=== PATIENT | male | born 1950 | race Caucasian/White ===

== ENCOUNTER 2019-03-03 05:51 | Inpatient (IN) | payer MEDICARE ==
[2019-03-03] MEDS ORDERED: FAMOTIDINE 20MG TABLET PO ONE (06:00)
[2019-03-03] MEDS ORDERED: ACETAMINOPHEN 500 MG TABLET PO ONE (06:00)
[2019-03-03] MEDS ORDERED: SCOPOLAMINE 1 PATCH TDSY TD ONE (06:00)
[2019-03-03] MEDS ORDERED: CELECOXIB 100 MG CAPSULE PO ONE (06:00)
[2019-03-03] MEDS ORDERED: CLINDAMYCIN PHOS/D5W 900MG 900 MG/50 ML BAG IVPB ONE (06:00)
[2019-03-03] MEDS ORDERED: VANCOMYCIN 1GM/200ML PREMIX 1 GM/200 ML PIGGYBACK IVPB ONE (06:00)
[2019-03-03] MEDS ORDERED: METOCLOPRAMIDE 10 MG TABLET PO ONE (06:00)
[2019-03-03] MEDS ORDERED: RINGERS SOLUTION,LACTATED 1,000 ML IV ONE ×4 (06:35→10:26)
[2019-03-03 06:49] LABS: ABO GROUP O; RH TYPE POSITIVE
[2019-03-03 06:57] LABS: ANTIBODY SCREEN NEGATIVE (NEGATIVE)
[2019-03-03] MEDS ORDERED: ZOLPIDEM TARTRATE 5 MG TABLET PO PRN (08:11)
[2019-03-03] MEDS ORDERED: AL HYDROX/MAG HYDROX 30ML UD PO PRN (08:11)
[2019-03-03] MEDS ORDERED: MAGNESIUM HYDROXIDE 30 ML UDC PO PRN (08:11)
[2019-03-03] MEDS ORDERED: BISACODYL 10 MG SUPP RC PRN (08:11)
[2019-03-03] MEDS ORDERED: ONDANSETRON HCL IV 4 MG/2 ML VIAL IVP PRN (08:11)
[2019-03-03] MEDS ORDERED: KETOROLAC 30 MG/ML VIAL IVP PRN ×2 (08:11)
[2019-03-03] MEDS ORDERED: ACETAMINOPHEN W/ CODEINE 300MG/30MG TABLET PO PRN ×2 (08:11)
[2019-03-03] MEDS ORDERED: ACETAMINOPHEN 325 MG TAB PO PRN (08:11)
[2019-03-03] MEDS ORDERED: ACETAMINOPHEN W/ CODEINE 300MG/60MG TABLET PO PRN ×2 (08:11)
[2019-03-03] MEDS ORDERED: NALOXONE 0.4 MG/1 ML VIAL IVP PRN (08:11)
[2019-03-03] MEDS ORDERED: DEXTROSE 5 % AND 0.9 % NACL 1,000 ML IV PRN (08:11)
[2019-03-03] MEDS ORDERED: HYDROMORPHONE HCL 2 MG/ML VIAL IM PRN ×2 (08:11)
[2019-03-03] MEDS ORDERED: METOCLOPRAMIDE HCL 10 MG/2 ML VIAL IVP PRN (08:11)
[2019-03-03] MEDS ORDERED: TRAMADOL HCL 50 MG TABLET PO PRN ×2 (08:11)
[2019-03-03] MEDS ORDERED: DIPHENHYDRAMINE HCL 25 MG CAPSULE PO PRN (08:11)
[2019-03-03] MEDS ORDERED: PROMETHAZINE HCL 12.5 MG in 0.9 % SODIUM CHLORIDE 100ML 50 ML IVPB PRN (08:11)
[2019-03-03] MEDS ORDERED: HYDROCODONE/APAP 5/325MG TABLET PO PRN ×2 (08:11)
[2019-03-03] MEDS ORDERED: BUPIVACAINE LIPOSOME 266MG/20ML VIAL SQ ONE (08:37)
[2019-03-03] MEDS ORDERED: BUPIVACAINE 0.5% W/EPI MPF 30 ML VIAL SQ ONE (08:37)
[2019-03-03] MEDS ORDERED: KETOROLAC 30 MG/ML VIAL IVP ONE (11:34)
[2019-03-03] MEDS: HYDROCODONE/APAP 7.5/325MG TABLET PO PRN ×4 (12:29→21:49)
[2019-03-03] MEDS: FERROUS SULFATE 325 MG TAB PO SCH ×2 (13:31→21:48)
[2019-03-03] MEDS: DOCUSATE SODIUM 100 MG CAPSULE PO SCH ×2 (13:31→21:48)
[2019-03-03] MEDS ORDERED: DEXAMETHASONE 4 MG/ML 1ML VIAL IVP ONE (14:00)
[2019-03-03] MEDS ORDERED: ROPIVACAINE HCL (NAROPIN) /PF 5MG/ML 20ML VIAL IV ONE (14:00)
[2019-03-03] MEDS ORDERED: TRANEXAMIC ACID 1,000 MG/10 ML ML IV ONE (14:00)
[2019-03-03] MEDS ORDERED: VANCOMYCIN HCL 1 GM VIAL IVPB ONE (14:00)
--- NOTE | 2019-03-03 16:05 | Rehab Evaluation ---
Patient Information - Patient Information Diagnosis: L knee OA Ordered Treatment: PT Evaluate and Treat Status: Initial Evaluation Surgery: Yes (L TKA) Date of Surgery: 03/03/19 Past Medical/Surgical Hx: PAST MEDICAL/SURGICAL HISTORY Past Surgical History bilat toe sx; open cholecystectomy; left knee semi partial replacement 8-10 yrs ago; colonoscopy; sinus sx; vasectomy; left dupytrens contracture sx. PMH - Respiratory Hx Respiratory Disorders Yes Hx Bronchitis Yes: awhile ago Hx Sleep Apnea Yes Hx of CPAP No PMH - Cardiovascular Hx Cardiovascular Disorders Yes Hx Edema Yes: left ankle slightly Hx Hypotension Yes Exercise Tolerance Poor Comment: due to knee injury PMH - Neuro Hx Neurological Disorders Yes Hx Weakness Yes: left knee PMH - GI Hx Gastroesophageal Reflux Yes: sometimes Hx Weight Loss/Weight Gain Yes: loss of 45 lbs since PMH - Hx Genitourinary Disorders No PMH - Endocrine Hx Endocrine Disorders No PMH - Musculoskeletal Hx Musculoskeletal Disorders Yes Hx Arthritis Yes: left kneeinjury 09/2018/ also in back Hx Back Injury Yes Hx Gout Yes: last time awhile ago PMH - Psych Hx Psychiatric Problems Yes Hx Anxiety Yes Hx Depression Yes PMH - Hematology/Oncology Hx Hematology/Oncology Yes Disorders Hx Blood Transfusion Reaction No Premorbid Status: Detail (The patient was independent with all mobility prior to surgery.) Social History: Detail (The patient lives alone in an apartment with 4 stairs at one enterance with 2 railings( too wide to reach both) and a ramp at the other enterance. The bathroom is equipped with : a tub/shower combination, shower seat and standard toilet. Grab bars were present in the shower but not near the toilet. The patient has a front wheeled walker and standard cane.) Precautions: [place], Fall, Other (WBAT on the L LE) - Time With Patient Total Time Spent With Patient (Min): 30 Treatment Procedures: Detail (Initial Evaluation low complexity, gait training) Subjective Information - Subjective Information Per Patient (The patient had complaints of medial calf pain. No tenderness to touch was noted.) Objective Data - Mental Status Patient Orientation: Oriented x3 - ROM Not within normal limits (The patient's L knee AROM is limited s/p surgery. All other AROM is WFL.) - Strength/Tone Not within normal limits (The patient's L LE strength was not tested s/p surgery however is functional ie: patient is able to lift L LE in and out of bed. The patient's R LE strength is WNL.) - Bed Mobility Independent (The patient was independent with supine to and from sit transfer.) - Transfers Independent (The patient was independent with sit to and from stand transfer.) - Balance Balance Sitting: Good Balance Standing: Good - Sensation Intact - Gait Detail (The patient ambulated with front wheeled walker a distance of 100 feet x 1 with supervision for safety WBAT on the L LE.) Therapy Assessment - Therapy Assessment Detail (The patient was independent with bed mobility and transfers and required supervision for safety only with ambulation. Feel the patient will progress well with mobility.) Problem List - Problem List Physical Therapy Problem List: Detail (1) Decreased L knee pain as to be expected s/p surgery. 2) Decreased L LE strength s/p surgery.) Goals - Goals Physical Therapy Goals: 1) The patient will be independent with TKA HEP. 2) The patient will ambulate on stairs using proper technique with supervision for safety. 3) The patient will ambulate independently with front wheeled walker WBAT on L LE distances of 100 feet plus. Prognosis - Prognosis Good Plan - Plan Physical Therapy Plan: PT 1-2 sessions for gait training on levels and stairs and instruction in HEP.
[2019-03-04 06:22] LABS: HEMATOCRIT 36.5 % (42.0-52.0)
--- NOTE | 2019-03-04 08:09 | Rehab Evaluation ---
Patient Information - Patient Information Diagnosis: failed unicompartment knee Ordered Treatment: OT Evaluate and Treat Status: Initial Evaluation Surgery: Yes (L TKA) Date of Surgery: 03/03/19 Past Medical/Surgical Hx: PAST MEDICAL/SURGICAL HISTORY Past Surgical History bilat toe sx; open cholecystectomy; left knee semi partial replacement 8-10 yrs ago; colonoscopy; sinus sx; vasectomy; left dupytrens contracture sx. PMH - Respiratory Hx Respiratory Disorders Yes Hx Bronchitis Yes: awhile ago Hx Sleep Apnea Yes Hx of CPAP No PMH - Cardiovascular Hx Cardiovascular Disorders Yes Hx Edema Yes: left ankle slightly Hx Hypotension Yes Exercise Tolerance Poor Comment: due to knee injury PMH - Neuro Hx Neurological Disorders Yes Hx Weakness Yes: left knee PMH - GI Hx Gastroesophageal Reflux Yes: sometimes Hx Weight Loss/Weight Gain Yes: loss of 45 lbs since PMH - Hx Genitourinary Disorders No PMH - Endocrine Hx Endocrine Disorders No PMH - Musculoskeletal Hx Musculoskeletal Disorders Yes Hx Arthritis Yes: left kneeinjury 09/2018/ also in back Hx Back Injury Yes Hx Gout Yes: last time awhile ago PMH - Psych Hx Psychiatric Problems Yes Hx Anxiety Yes Hx Depression Yes PMH - Hematology/Oncology Hx Hematology/Oncology Yes Disorders Hx Blood Transfusion Reaction No Premorbid Status: Detail (The patient was independent with all mobility, meal prep (using mostly microwave), home mgmt and laundry tasks prior to surgery.) Social History: Detail (The patient lives alone in an apartment with 4 stairs at one entrance with 2 railings (too wide to reach both) and a ramp at the other entrance. The bathroom is equipped with: a tub/shower combination, shower seat and standard toilet. Grab bars were present in the shower but not near the toilet. The patient has a front wheeled walker and standard cane. Pt has a supportive brother and sister in law and also several brothers in the area.) Precautions: [place], Fall, Other (WBAT on the L LE) - Time With Patient Total Time Spent With Patient (Min): 45 Treatment Procedures: Detail (OT eval low complexity) Subjective Information - Subjective Information Per Patient Objective Data - Pain Pain Present: Yes (02/03) - Mental Status Patient Orientation: Oriented x3 - Visual Perception Appears within normal limits for therapeutic activities (Pt wears glasses for reading) - ROM Within normal limits (Lloyd UE AROM WNL) - Strength/Tone Within normal limits (Lloyd UE strength 4+/5) - Coordination Appears within normal limits for therapeutic activities - Bed Mobility Independent (Ind with supine to sit and sit to supine) - Transfers Independent (Ind with sit to stand from EOB, chair and toilet heights.) - Balance Balance Sitting: Good Balance Standing: Good - Sensation Intact - Gait Detail (Pt ambulating in room with 2 wheeled walker and SBA.) - ADL's/IADL's Detail (Pt educated and able to demonstrate learning of modified LE dressing techniques including doffing slipper socks and donning sweatpants, socks and tennis shoes.) Therapy Assessment - Therapy Assessment Detail (Pt is Ind with modified LE dressing techniques.) Problem List - Problem List Physical Therapy Problem List: Detail (1) Decreased L knee pain as to be expected s/p surgery. 2) Decreased L LE strength s/p surgery.) Occupational Therapy Problem List: Detail (No current IP OT problems identified.) Goals - Goals Physical Therapy Goals: 1) The patient will be independent with TKA HEP. 2) The patient will ambulate on stairs using proper technique with supervision for safety. 3) The patient will ambulate independently with front wheeled walker WBAT on L LE distances of 100 feet plus. Occupational Therapy Goals: No current IP OT goals identified. Prognosis - Prognosis Good Plan - Plan Physical Therapy Plan: PT 1-2 sessions for gait training on levels and stairs and instruction in HEP. Occupational Therapy Plan: No further IP OT recommended. Pt may benefit from home OT eval to assess bathroom and kitchen safety and modifications. Thank you for this referral.
--- NOTE | 2019-03-04 09:47 | Physical Therapy Tx Note ---
Physical Therapy Tx Note - Treatment Note Tolerated: Good Total Time Spent With Patient: 25 Physical Therapy Tx Note: Detail (The patient was up in chair when PT arrived. The patient complained of medial and lateral L quad pain but did not rate the pain using 0-10 pain scale. The patient ambulated with front wheeled walker a distance of 120 feet WBAT on the L LE independently. The patient ambulated on 3 steps x 2 with use of one railing and single point cane using proper technique with supervision for safety. The patient completed TKA HEP included seated heel slides, SLR, ankle pumps, quad sets, hamstring set and gluteal sets. The patient has met all inpatient PT goals. Patient requested one more practice session on the stairs which PT will complete this pm.) Physical Therapy Problem List: Detail (1) Decreased L knee pain as to be exp ected s/p surgery. 2) Decreased L LE strength s/p surgery.) Physical Therapy Goals: 1) The patient will be independent with TKA HEP (Goal Met). 2) The patient will ambulate on stairs using proper technique with supervision for safety. ( Goal Met). 3) The patient will ambulate independently with front wheeled walker WBAT on L LE distances of 100 feet plus. (Goal Met) Physical Therapy Plan: PT 1-2 sessions for gait training on levels and stairs and instruction in HEP.
[2019-03-04] MEDS: CELECOXIB 100 MG CAPSULE PO SCH (10:19)
[2019-03-04] MEDS: FERROUS SULFATE 325 MG TAB PO SCH ×2 (10:19→21:44)
[2019-03-04] MEDS: DOCUSATE SODIUM 100 MG CAPSULE PO SCH ×2 (10:20→21:44)
[2019-03-04] MEDS: RIVAROXABAN 10 MG TABLET PO SCH (10:20)
[2019-03-04] MEDS: HYDROCODONE/APAP 7.5/325MG TABLET PO PRN ×3 (12:01→21:44)
--- NOTE | 2019-03-04 15:37 | Physical Therapy Tx Note ---
Physical Therapy Tx Note - Treatment Note Tolerated: Good Total Time Spent With Patient: 15 Physical Therapy Tx Note: Detail (Patient was up in chair when PT arrived and had no complaints of pain. The patient ambulated with front wheeled walker a distance of 230 feet x 1 WBAT on the L LE independently. The patient ambulated on 3 steps with use of cane and railing using proper technique with supervision for safety. Seated heel slides were reviewed. The patient returned to bed, independent with supine to sit using R LE to lift L LE. Ice pack was replaced and call light was within reach. The patient has passed all inpatient skills, however requests one more PT session in the am to review exercises and stair climbing.) Physical Therapy Problem List: Detail (1) Decreased L knee pain as to be expected s/p surgery. 2) Decreased L LE strength s/p surgery.) Physical Therapy Goals: 1) The patient will be independent with TKA HEP. 2) The patient will ambulate on stairs using proper technique with supervision for saf ety. 3) The patient will ambulate independently with front wheeled walker WBAT on L LE distances of 100 feet plus. Physical Therapy Plan: PT 1-2 sessions for gait training on levels and stairs and instruction in HEP.
[2019-03-04] MEDS ORDERED: EPHEDRINE SULFATE 50 MG/ML ML IV ONE (16:01)
[2019-03-04] MEDS ORDERED: MIDAZOLAM HCL 2MG/2ML VIAL IV ONE (16:01)
[2019-03-04] MEDS ORDERED: KETAMINE HCL 100MG/1ML VIAL INJ ONE (16:01)
[2019-03-04] MEDS ORDERED: PROPOFOL 10 MG/ML VIAL IV ONE (16:01)
[2019-03-05] MEDS: HYDROCODONE/APAP 7.5/325MG TABLET PO PRN ×3 (01:57→09:59)
[2019-03-05 06:55] LABS: HEMATOCRIT 32.6 % (42.0-52.0); HEMOGLOBIN 10.5 gm/dl (14.0-18.0)
[2019-03-05] MEDS: DOCUSATE SODIUM 100 MG CAPSULE PO SCH (09:03)
[2019-03-05] MEDS: CELECOXIB 100 MG CAPSULE PO SCH (09:03)
[2019-03-05] MEDS: FERROUS SULFATE 325 MG TAB PO SCH (09:03)
[2019-03-05] MEDS: RIVAROXABAN 10 MG TABLET PO SCH (09:04)
--- NOTE | 2019-03-05 11:48 | Physical Therapy Tx Note ---
Physical Therapy Tx Note - Treatment Note Tolerated: Good Total Time Spent With Patient: 30 Physical Therapy Tx Note: Detail (Pt was lying in bed with ice on left knee. Pt states that he is a little concerned with going home to do stairs and would like review. Pt completed all HEP x 10 with very little verbal clarification. Pt transfered from bed independently. Pt transferred sit to stand and reverse to bed independently. Pt ambulated 200 ft with front wheeled walker with contact guard assist. Pt was able to complete steps up and down (3) with cane and one railing. Pt states that he will be using cane at home for stairs. Pt reviewed activities for home and plan for discharge. Pt is discharged from PT at this time as he has met all of his goals.) Physical Therapy Problem List: Detail (1) Decreased L knee pain as to be expected s/p surgery. 2) Decreased L LE strength s/p surgery.) Physical Therapy Goals: 1) The patient will be independent with TKA HEP. 2) The patient will ambulate on stairs using proper technique with supervision for safety. 3) The patient will ambulate independently with front wheeled walker WBAT on L LE distances of 100 feet plus. Prognosis: Good Physical Therapy Plan: Pt is discharged from PT at this time.
--- NOTE | 2019-03-10 11:44 | Operative Note ---
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 OPERATION: Revision to total knee arthroplasty. SURGEON: Gaurav Lucio M.D. ANESTHESIA: Spinal. COMPLICATIONS: None. ESTIMATED BLOOD LOSS: 100 mL OPERATIVE FINDINGS: A completely failed medial compartment arthroplasty, fractured femoral component with a metal fragment in the joint line, and loose eroded tibial poly insert and tibial baseplate, the femoral component was completely loose. INDICATION: A 68-year-old male who is mentally challenged who has fallen multiple times over the past several years. He is status post a unicompartmental knee arthroplasty done by myself about 10 years ago and he came in recently after another fall at work and x-rays showed a fractured femoral component towards the anterior flange and a small metallic fragment likely from the femoral component in the anterior joint line. He is scheduled for the procedure above. I explained to the patient and the patient's family all risks and benefits of the surgery in detail for a diagnosis of the procedures including, but not limited to, infection, nerve injury, vessel injury, persistent pain, numbness and tingling of the knee, periprosthetic fracture, need for resection arthroplasty, components infected or loosened, blood clot, need for anticoagulation to prevent blood clots, and risks associated with need for procedures, need for medications. All of their questions were answered in the room. The course was outlined and they agreed to proceed. PROCEDURE: The patient was brought into the OR and placed in the supine position. Antibiotics given prior to surgery. Spinal anesthesia induced. His left lower extremity was prepped and draped in sterile fashion. His left knee was prepped with Chloraprep and draped. An intraoperative timeout was performed. No tourniquet was used. We utilized Aquamantys throughout the entire case. Next, we exsanguinated the leg with Esmarch and used a previous medial base incision, infiltrated the area with 0.5% Marcaine with epinephrine, tranexamic acid and Exparel mixture. The skin and subcutaneous tissues dissected down, incised the capsule medially along the medial border of the patella to the tibial tubercle and incised the vastus medialis in line with its fibers in a mid vastus approach. We released the capsule anteriorly and medially and resected the retropatellar fat pad and opened up the capsule. He had severe metallosis and synovial reaction throughout the entire knee, massive amounts of synovium, dusky-colored. We resected all that superior patellar pouch, medial and lateral gutters and flexed the knee, inspected the femoral component, it was fractured, cracked through the anterior flange. There was a small metal fragment from the femoral component anteriorly at the joint line. We removed all that. We removed the femoral component without difficulty, it was completely loose. Next, then we removed the tibial component. The tibial poly insert had a large groove in it, it was not completely worn through, but only had a few millimeters left. I removed the poly insert, removed the screw for the baseplate and removed the baseplate and did extensive debridement, basically more synovium metallosis and some of the cement on the tibia. There is a moderate-sized defect in the tibia centrally and a large defect in the lateral femoral canal, lateral femoral condyle. We curetted this out, the metallosis and fibrous tissue to raw bleeding bone. We plan on filling that defect with some bone graft and cement, there is still a periphery. Next, attention turned to the femur, then using a basic Journey femur component, we sized, drilled into counter drill hole, inserted intramedullary guide rods and placed the distal femoral cutting jig on, we set it at +4 mm to cover some of the defect at the lateral condyle at least, however there is still 2 cm deep x about 2 cm round area and then pinned that in place +4 mm position because of the distal femoral condyle. Next, we placed a sizing jig at the distal femoral condyle, size to be right at size 9 and large knee. We drilled the 2 pin holes and through the previously placed pin holes we placed a size 9 cutting jig. We dialed the anterior cuts so it cut flush without notching, we cut that and it was a good cut. We pinned it and then cut the remainder chamfer cuts in the usual fashion. We placed a size 9 trial component, centered it, pinned it, removed osteophytes throughout the periphery and inserted the resection tool and reamed out and box osteotomed out the cruciate bone block. Next, then attention turned to the tibia. I placed an external alignment jig, we exposed the tibia, removed osteophytes, exposed the tibia, seated the external alignment jig spikes in the tubercle groove, 2 fingerbreadths distally in reference for a 7 mm cut off the higher lateral plateau. We pinned that cutting jig provisionally in place with 2 anterior posterior pins and then rechecked alignment of the cutting jig using a drop estrella centering the tibia to the anatomic axis and cut the tibia. We still had significant step-off medially as expected from the medial compartment arthroplasty, therefore planned using a step cut. Next, we brought in the Legion conversion step cut trial size 8 tibial component, we aligned that centered through the tubercle and sized it and it was a good size, coming to the edges of the cortical bone, and then we pinned that in place, drilled the central canal hole with the reamer and then inserted the peg, the estrella for the collet and inserted the collet and then inserted the proximal bushing reamer and reamed the proximal tibia. Next, we placed the size 8 component cutting jig. Next, we placed the hand post handle on the tibial base plate with the step cut medially and using our resection checking blade, planned on using the 10 mm cut to cover this defect medially. We cut it at the 10 mm position after we pinned that cutting jig in place and it covered the defect nicely and we planned on using that depth width of spacer. We removed all the cutting jigs now for the tibia Legion. Assembled the trial component, seated the trial liner and it fit nicely and the step cut was seated nicely on the tibial cortex. Next, we did a trial range of motion with all the trial components and the 9 mm poly insert and allowed for 2 to 3 mm of varus valgus laxity in flexion and extension, full flexion at 150 degrees, extension 0, and symmetric flexion and extension gap it was the size that we ended up using. Next, attention turned to the patella. We measured the patella to be 26 mm, set the cutting jig at 24 mm, cut the cutting jig at 15 mm to allow for a 9 mm thick poly insert, cut the tibia, cut the patella and then re-measured right on 15, it was chamfered off the lateral patella facet, sized to be 35, medialized it as much as possible and drilled 3 peg holes and did a trial range of motion while we mixed cement and assembled our components. Next, then we drilled the medial femoral condyle defect with several drill holes to allow for cement and tentation and bone graft and we morselized some bone graft on the resections and tamped it down into the base of that defect, we still had a fairly large defect, about 1.5 cm area to 2 cm, planned on filling the rest with cement as the periphery of the cortex and the posterior condyle was still intact and the anterior portion of the medial femoral condyle was intact. Next, I changed gloves, brought in a clean sheet, copiously irrigated the stephan surfaces with pulse lavage with antibiotic solution and we previously keel punched the tibial surface, using the Sendmebox keel punch when that was in place. Next, we placed the antibiotic cement, filled in some of the tibia defect, which is a small hole, about 0.5 cm around from the screw, and prefilled both surfaces with cement and packed down the assembled tibial component with the 10 mm spacer medially and that seated nicely and then prefilled both surfaces and filled in the defect of the medial femoral condyle and then impacted the femoral component until it seated flush and then placed the trial tibia poly liner, clamped down the patella component after precut bone surfaces, held the knee in extension until the cement hardened. Once the cement hardened, took the knee in flexion and removed excess cement off the edges of the components, irrigated copiously, injected our mixture of 0.5% Marcaine with epi, tranexamic acid, and Exparel in the posterior capsule medial and lateral periosteum initially and then inserted the real tibia poly insert and verified it was interlocked medial to laterally, final range of motion and tability were the same. We placed the rest of our mixture in the vastus medialis, quadriceps, patellar tendon and closed the knee in flexion using running #2 Quill suture, irrigated again. Closed the skin in 2-0 Vicryl and provisional dressing, we applied a sterile dressing and BEATRICE wrap and we will change to SILVIA dressing prior to discharge. The patient tolerated the procedure well, no intraoperative complications. Needle and sponge counts correct, to recovery stable, neuro is intact. He will be discharged to the floor and we could discharge to rehab in 3 days. FRANK
== END 2019-03-05 12:30 | disposition home health service (06) | DRG 561 ==
LOC: SUR 05:51 → MEDSURG 11:47 → SUR 11:47 → MEDSURG 11:47
PROVIDERS: ADMIT Orthopaedic Surgery; ATTEND Orthopaedic Surgery
DX: T84.013A Broken internal left knee prosthesis, initial encounter (principal); T84.033A Mechanical loosening of internal left knee prosthetic joint, initial encounter; G47.33 Obstructive sleep apnea (adult) (pediatric)
CPT/HCPCS: 86900; 86901; 86850; J1885; C9290; J3490; J3370; 76942; 85014; 85018; C1776; J7120